=== PATIENT | female | born 1955 | race Caucasian/White ===

== ENCOUNTER 2019-09-10 02:22 | Outpatient (CLI) | payer OTHER, SELFPAY ==
--- NOTE | 2019-09-10 | DI.CTLCSR_ITS ---
EXAM: CT CHEST LUNG CANCER SCREEN CLINICAL HISTORY: CURRENT SMOKER, SCREENING, F17.200 TECHNIQUE: Low-dose screening protocol without contrast. COMPARISON: No exams were available for comparison FINDINGS: The heart size is normal. The aorta shows mild calcification and is normal in diameter. There are no visible coronary artery calcifications. No pleural or pericardial effusions or adenopathy is seen. Th ere are several scattered peripheral nodules measuring 2-3 millimeters in size. No infiltrates are se en. There is mild underlying centrilobular emphysema and biapical scarring. There are mild degenerati ve changes in the lumbar spine. The visualized portions of the upper abdomen are unremarkable. IMPRESSION: Lung RADS Cat 2 - Benign Appearance / Behavior: Nodules with a very low likelihood of becoming a clin ically active caner due to size or lack of growth. Annual low-dose screening CT is recommended.
== END 2019-09-10 02:42 ==
PROVIDERS: PCP Family Medicine; Visit Provider Family Medicine
DX: Z12.2 Encounter for screening for malignant neoplasm of respiratory organs (principal); F17.210 Nicotine dependence, cigarettes, uncomplicated; J43.9 Emphysema, unspecified; R91.8 Other nonspecific abnormal finding of lung field
CPT/HCPCS: G0297

== ENCOUNTER → 2022-05-09 02:50 | Outpatient (CLI) | payer MEDICARE, SELFPAY ==
--- NOTE | 2022-05-09 10:45 | ST.MBS_ITS ---
Date of Service Date of service: 05/09/22 Time of Service: 10:45 Modified Barium Swallow Study Findings: Video fluoroscopic Swallowing Evaluation (VFSE) / Modified Barium Swallow Study (MBSS) Speech Language Pathology Report Patient referred for VFSE/MBSS from Dr. BOWERS ([facility] [place] [place] given hx chemoRT for laryngeal cancer, worsening dysphagia. Eval for pharyngeal dysfunction, sten osis. Please coordinate with MONOTYPE OPERATOR. 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 Current smoker with 20 pack year hx. Most recent LDCT on 01/13/22 noted new cavitary lesions in Right upper lobe (10mm) and the Left lower lobe (7mm). Patient had a PEG tube during cancer treatment. She is currently followed by Pema Gonzales through [facility] [place] for RMST and swallow strategy/risk management training. Medical HX: Laryngeal cancer, GERD, Pure hypercholersterolemia, Hx total r hip replacement (bilateral, done separately, S/P Right SILVERIO, S/P revision of total hip LEFT, Spinal stenosis - lumbar Subjective: Patient reports progressive dysphagia especially to solids but also to liquids. Complains primarily of pharyngeal stasis to solids>liquids but can feel it with liquids, too. Sometimes with sensation of aspiration. IMPRESSIONS: Swallow safety is impaired; swallow efficiency is impaired. Moderate chronic oropharyngeal and ?esophageal dysphagia. Characterized primarily by the physiologic deficits as outlined below, resulting in penetration, residue, stasis,; following, the swallow from residue. Clinical Indicator(s) of Prandial/Postprandial Aspiration include: n/a Cued cough/throat clears were not effective to clear scant laryngeal residue. Volitional cough not robust. Patient appears to be at low-moderate risk for potential aspiration PNA and/or pulmonary compromise and low moderate risk for malnutrition, low risk for dehydration, especially if dysphagia continues to progress, or pending pulmonary status. Diet modification is indicated; non-oral nutrition is indicated. Swallow prognosis is guarded given: chronic progressive dysphagia s/p XRT, reported difficulty adhering to RMST, additional medical prognosis factors Positive prognostic factors: Age, Family/caregiver support, Cognitive status, Negative prognostic factors: Severity, Time since onset, Relative dose of Chemotherapy and/or radiation treatment, Ineffectiveness of trialed compensatory strategies, and pending patient/caregiver training in risk management as outlined, including use of trialed compensatory strategies. Patient appears to be a good candidate for behavioral swallow rehabilitation. RECOMMENDATIONS: Diet Texture Recommendation:? IDDSI LEVEL SOLIDS 5-Minced & Moist Solids LIQUIDS 0-Thin Liquids Please see further details at?www.iddsi.org http://www.iddsi.org/ MEDICATIONS Crushed, as able with 0-Thin Liquids or (slick, applesauce) Do not alter medications (e.g., cut)? without advice from your MD or pharmacist. Risk Management Strategies:? Behavioral reflux precautions, including upright position during + 90 mins after meals. Small bites, approx [id number] Very small sips, approx 5mL / teaspoon Alternate solids/liquids as able Multiple swallows (3+) per bolus to encourage clearance of pharyngeal stasis/residue Control risk factors for aspiration pneumonia via (a) thorough oral hygiene & (b ) maintaining physical mobility as tolerated PLAN: Therapy: Recommend subsequent outpatient session with MONOTYPE OPERATOR to review results of today's exam and develop treatment plan as appropriate. May consider the following: Oropharyngeal Exercises to target deficits noted in objective section above Further Compensatory Strategy Training Further Training/Education in Risk Management Training in RMST Program Further Counseling re: Options for maintaining quality of life in context of dysphagia presentation Goals: Defer to treating clinician Follow-up exam: Defer to treating clinician ----- OBJECTIVE Videofluoroscopic Swallow Evaluation (VFSE/MBSS) was conducted in the lateral projection by Speech-Language Pathologist, in collaboration with Radiologist, to evaluate oropharyngeal swallow function. Anatomic view under fluoroscopy: WFL PO Barium Contrast Trials Oral barium water-soluble contrast was administered as follows: IDDSI Level 0 Varibar thin liquid (40% w/v) IDDSI Level 2 Varibar nectar thick/mildly thick liquid (40% w/v) IDDSI Level 4 Varibar pudding/pureed/extremely thick (40% w/v) MBSImP Component Scores: COMPONENT Scale SCORE 1 Lip closure (0-4) 0 Resulted in no labial escape 2 Hold Position (0-3) 1 Allowed bolus escape to lateral buccal cavity/floor of mouth - trace amounts 3 Bolus Preparation (0-4) NA no solid trials administered given level of stasi s with pudding 4 Bolus Transport (0-4) 1 Demonstrated delayed initiation of tongue motion - mild 5 Oral Residue (0-4) 2 Was a collection on oral structures - partially due to piecemeal deglutition of pudding, though some residue present with liquid as well 6 Swallow Initiation (0-4) 1 Occurred when the bolus head was in valleculae 7 Soft Palate Elevation (0-4) 0 Resulted in no bolus between soft palate and t he pharyngeal wall 8 Laryngeal Elevation (0-3) 1 Was decreased with partial superior movement of thyroid cartilage/partial approximation of arytenoids to epiglottic petiole 9 Anterior Hyoid Motion (0-2) 0 Demonstrated complete anterior movement 10 Epiglottic Movement (0-2) 1 Resulted in partial inversion - variable from n o inversion to partial 11 Laryngeal Closure (0-2) 1 Was incomplete with narrow a column of air/contra st in laryngeal vestibule 12 Pharyngeal Stripping Wave (0-2) 1 Was present, but diminished 13 Pharyngeal Contraction (0-3) NA no a/p view 14 PES Opening (0-3) 1 Demonstrated partial distension/partial duration, with pa rtial obstruction of flow 15 Tongue Base Retraction (0-4) 3 Allowed a wide column of contrast or air between the retracted tongue base and the posterior pharyngeal wall 16 Pharyngeal Residue (0-4) 3 Was the majority of contrast within or on pharyngeal structures 17 Esophageal Clearance (0-4) NA Notes on Penetration/Aspiration: Penetration largely occurring AFTER the swallow of pharyngeal stasis with liquids only (including thickened). 1x penetration event during the swallow (larger volume/thin liquid wash to clear pudding vallecular stasis) Though penetration occurred consistently with liquid trials, and residue remained in the larynx post-swallow, no sub-glottic residue was visualized, no aspiration observed Pharyngeal Residue: For thick>thin liquids, overall mild For pudding, severe, with minority of bolus clearing per swallow including subsequent secondary swallows. Results: COMPONENT Scale SCORE 1 Oral Score (0-18) 5 2 Pharyngeal Score (0-29) 11 3 Esophageal Score (0-4) 0 Dysphagia Outcome and Severity Scale: COMPONENT Scale SCORE 1 LEVEL (1-7) 3 Full PO: Modified Diet and/or [place] - Moderate dysphagi a; Total assist / Supervision or strategies 2 or more diet consistencies restricted Penetration-Aspiration Scale: COMPONENT Scale SCORE 1 Thin liquid (1-8) 5 Contrast entered the airway, contacted the vocal folds, and was not ejected from the airway. 2 [place] thick (1-8) 5 Contrast entered the airway, contacted the vocal folds, and was not ejected from the airway. 3 Honey thick (1-8) NA dnt 4 Pudding thickA (1-8) 1 Contrast did not enter the airway 5 Cookie (1-8) NA dnt Functional Oral Intake Scale: COMPONENT Scale SCORE 1 Pre-Study (1-7) NA 2 Post-Study (1-7) 5 Total oral intake of multiple consistencies requiring special preparation DIGEST: COMPONENT Scale SCORE 1 Thin Max PAS (1-8) 5 Contrast entered the airway, contacted the vocal folds, and was not ejected from the airway. 2 [place] Max PAS (1-8) 5 Contrast entered the airway, contacted the vocal fold s, and was not ejected from the airway. 3 Honey Max PAS (1-8) NA 4 Liquid Max PAS (1-8) 5 Maximum PAS Score over all liquid trials 5 Liquid Max Residue (0-3) 1 10 - 49% 6 Pudding Max PAS (1-8) 1 Contrast did not enter the airway 7 Pudding Max Residue (0-3) 2 50 - 90% 8 Cracker Max PAS (1-8) NA 9 Cracker Max Residue (0-3) NA 10 Frequency if PAS >= 3 (0-3) NA 11 Amount if PAS >= 5 (0-1) 0 Not gross Results: COMPONENT Scale SCORE 1 SAFETY GRADE (0-4) 1 Safety grade for swallowing based on patterns of aspiration or laryngeal penetration 2 EFFICIENCY GRADE (0-4) 3 Efficiency grade of swallowing based on patterns of pharyngeal residue 3 DIGEST (0-4) 2 Severity grade of pharyngeal dysphagia: 0 - Normal, 1 - Mild, 2 - Moderate, 3 - Severe, 4 - Life threatening 4 Max Exam PAS (1-8) 5 Maximum PAS Score over all bolus trials 5 Max Exam Residue (0-3) 2 Maximum Exam Residue over all bolus trials Trialed Compensatory Strategies & Outcome: Maneuvers Successful (+) Unsuccessful (-) Postures Successful (+) Unsuccessful (-) 3 second Preparatory Set? ? +/- Chin Tuck Posture? ? +/- Cough? ? Posterior Head tilt? Reflexive? Cued? ? - ? ? Throat Clear? ? Head Tilt to? Reflexive? Left? Cued? ? - ? Right? ? Saliva swallow? C ? + to decrease, incrementally, pharyngeal residue Head Turn/Rotate to? ? Supraglottic Swallow? Left? ? - Super-supraglottic Swallow? Right? ? - Bolus Modifications Successful (+) Unsuccessful (-) Delivery/Alternating Consistencies ? Follow with Liquid Wash - ? Follow with Solid Bolus? Delivery/Via Straw? ? Reduced Volume? ? + Reduced Rate of Intake? ? Increased Viscosity? ? - Other:?? ? Thank you for allowing us to take part in this patient's care. Please feel free to contact the [facility] Speech Language Pathology Department with any questions/concerns. Coding CPT Codes MOTION FLUOROSCOPY/SWALLOW - [id number] ([id number])
[2022-05-09] MEDS: Barium Sulfate 81% w/w for Oral Suspension 148 GM BTL 45 GM PO (11:11)
[2022-05-09] MEDS: Barium Sulfate 40% W/V 1500 CPS 250 ML BTL PO (11:12)
[2022-05-09] MEDS: Barium Sulfate Oral Paste 40% W/V 230 ML TUBE 7 ML PO (11:13)
--- NOTE | 2022-05-09 11:13 | DI.RAD_ITS ---
Exam(s) RF MODIFIED SPEECH BA SWALLOW TECHNIQUE: Modified barium swallow was performed in conjunction with speech pathology. CONTRAST MATERIAL: Oral barium contrast was administered. COMPARISON: No exams were available for comparison FINDINGS: Note that this is not a dedicated esophagram, distal esophagus not evaluated. There is no evidence of aspiration of thick or thin liquids or barium pudding. There was penetration with thin liquid barium during the examination. There is retention of barium pudding throughout the examination within the vallecula. Speech pathology report to follow. IMPRESSION: No evidence of aspiration. There was penetration of thin liquid during the examination. Please refe r to the speech pathology report for complete details. RADIATION DOSE DELIVERED: jhon Torre=8.18 mGy
== END ==
PROVIDERS: PCP Family Medicine; Visit Provider Internal Medicine Hematology & Oncology
DX: Z20.822 Contact with and (suspected) exposure to COVID-19 (principal); R13.10 Dysphagia, unspecified; C32.9 Malignant neoplasm of larynx, unspecified
CPT/HCPCS: 92611; 74221

== ENCOUNTER → 2023-11-12 03:32 | Outpatient (CLI) | payer MEDICARE, SELFPAY ==
--- NOTE | 2023-11-12 09:40 | DI.RAD_ITS ---
Exam(s) RF MODIFIED SPEECH BA SWALLOW TECHNIQUE: Modified barium swallow was performed in conjunction with speech pathology. CONTRAST MATERIAL: Oral barium contrast was administered. COMPARISON: No exams were available for comparison FINDINGS: Note that this is not a dedicated esophagram, distal esophagus not evaluated. Aspiration occurred with thin liquids. There was no aspiration or penetration with thick liquids or barium pudding. Speech pathology report to follow. . . . IMPRESSION: Aspiration occurred with thin liquids. RADIATION DOSE DELIVERED: jhon Torre=4.72 mGy
[2023-11-12] MEDS: Barium Sulfate Oral Paste 40% W/V 230 ML TUBE PO (09:44)
[2023-11-12] MEDS: Barium Sulfate 81% w/w for Oral Suspension 148 GM BTL PO (09:44)
[2023-11-12] MEDS: Barium Sulfate 40% W/V 240 ML BTL PO (09:45)
--- NOTE | 2023-11-12 12:22 | ST.MBS ---
Date of Service Date of service: 11/12/23 Time of Service: 09:00 Modified Barium Swallow Study Findings: Video fluoroscopic Swallowing Evaluation (VFSE) / Modified Barium Swallow Study (MBSS) Speech Language Pathology Report Patient referred for VFSE/MBSS from Dr. Yuliet Hooks given worsening dysphagia. HPI & Patient report of function: Patient is a 68 year old female with report of worsening swallowing difficulty. She has a hx of cT2N2 laryngeal CA s/p chemoradiation treatment in 2016. She had a PEG tube during treatment, but had it removed shortly after completion of treatment. Her last MBSS was in 2021, revealing moderate chronic oral pharyngeal and ? esophageal dysphagia. See report dated 05/09/22 for further information. She presents today stating I feel like things are a lot worse, noting her has had to give her the heimlich many times. She denies weight loss, stating she eats ice cream daily. No history of recent pneumonia. She is currently working closely with her dentist for dental extractions, with hx abscess and infections. Previous Imaging: MBSS 05/09/22 IMPRESSIONS: Viviane presents with moderate-severe chronic oral pharyngeal sensori-motor dysphagia, appearing at least mildly worse compared to last assessment. Swallow safety and efficiency are both impaired. Primary impairments include: decreased BOT retraction, decreased pharyngeal wall movement, delayed swallow initiation, suspected epiglottic rigidity, and decreased UES opening. This results in consistent aspiration with thin liquids due to the barium liquid reaching the pyriforms prior to swallow initiation with spillover into laryngeal vestibule during the swallow. With trace quantity aspiration there is no cough reflex (silent aspiration), though cough reflex is appreciated with greater quantity (though delayed/ineffective). With mildly thick liquids, there is penetration that remains above the vocal cords, however there is notably more residue in the pyriforms that is difficult to clear. With solids/pudding, there is significant vallecular and pyriform retention requiring sips of liquid and anterior movement back to oral cavity to re-swallow. Majority of residue is cleared with consecutive sips of thin liquid. Overall, Viviane is considered very high risk for aspiration-related illness, especially in current setting of dental infections (active with dentist for extractions). In addition to swallow safety, swallow efficiency is significantly impaired, though fortunately, she denies issues with weight maintenance- supplementing with drinks and ice cream. Recommend consideration/trial of upper esophageal dilation, in addition to ongoing SADDLE MECHANIC services targeting pharyngeal/BOT strength and ROM. Viviane is in agreement with both of these recommendations. Swallow prognosis is guarded given diagnosis/PMH. Positive prognostic factors include patient insight/motivation. She is a fair to good candidate for behavioral swallow rehabilitation. Specialist referrals:? GI vs surgery for consideration of upper esophageal dilation at level of UES RECOMMENDATIONS: Diet Texture Recommendation:? SOLIDS 5-Minced & Moist Solids & 4-Puree solids. All minced/moist solids must be chewed to applesauce consistency before swallowing. Recommend favoring runny puree/applesauce consistency as able for majority of intake LIQUIDS 0-Thin Liquids VERY SMALL, SINGLE SIPS Please see further details at?www.iddsi.orghttp://www.iddsi.org/ MEDICATIONS Cut/crushed in applesauce followed by sips liquid Diet texture modification is per patient's preference; please adjust diet textures at patient's discretion & collaboration with care team. Do not alter medications (e.g., cut)? without advice from your MD or pharmacist. Risk Management Strategies:? Small bites, approx [id number] Very small sips, approx 5mL / teaspoon Alternate solids/liquids as able Multiple swallows per bolus to encourage clearance of pharyngeal stasis/residue Control risk factors for aspiration pneumonia via (a) thorough oral hygiene & (b) maintaining physical mobility as tolerated PLAN: Therapy: Recommend subsequent outpatient session with SADDLE MECHANIC to review results of today's exam and develop treatment plan as appropriate. May consider the following: Oropharyngeal Exercises to target deficits noted in objective section above Further Compensatory Strategy Training Further Training/Education in Risk Management Further Counseling re: Options for maintaining quality of life in context of dysphagia presentation Goals: Follow-up exam: N/A OBJECTIVE Videofluoroscopic Swallow Evaluation (VFSE/MBSS) was conducted in the lateral projection by Speech-Language Pathologist, in collaboration with Radiologist, to evaluate oropharyngeal swallow function. Anatomic view under fluoroscopy: WFL PO Barium Contrast Trials Oral barium water-soluble contrast was administered as follows: IDDSI Level 0 Varibar thin liquid (40% w/v) IDDSI Level 2 Varibar nectar thick/mildly thick liquid (40% w/v) IDDSI Level 4 Varibar pudding/pureed/extremely thick (40% w/v) *Did not test regular solids due to residue with pudding MBSImP Component Scores: COMPONENT Scale SCORE 1 Lip closure (0-4) 0 Resulted in no labial escape 2 Hold Position (0-3) 0 Maintained a cohesive bolus between tongue to palatal seal 3 Bolus Preparation (0-4) N/A Did not present beyond pudding 4 Bolus Transport (0-4) 1 Demonstrated delayed initiation of tongue motion - mild 5 Oral Residue (0-4) 0 Was not observed. There was complete oral clearance 6 Swallow Initiation (0-4) 3 Occurred when the bolus head was in the pyriform sinuses 7 Soft Palate Elevation (0-4) 0 Resulted in no bolus between soft palate and the pharyngeal wall 8 Laryngeal Elevation (0-3) 2 Was incomplete, with minimal superior movement of thyroid cartilage with minimal approximation of arytenoids to epiglottic petiole 9 Anterior Hyoid Motion (0-2) 1 Demonstrated partial anterior movement 10 Epiglottic Movement (0-2) 1 Resulted in partial inversion 11 Laryngeal Closure (0-2) 1 Was incomplete with narrow a column of air/contrast in laryngeal vestibule 12 Pharyngeal Stripping Wave (0-2) 1 Was present, but diminished 13 Pharyngeal Contraction (0-3) NA 14 PES Opening (0-3) 2 Demonstrated minimal distension/minimal duration, with marked obstruction of flow 15 Tongue Base Retraction (0-4) 3 Allowed a wide column of contrast or air between the retracted tongue base and the posterior pharyngeal wall 16 Pharyngeal Residue (0-4) 3 Was the majority of contrast within or on pharyngeal structures 17 Esophageal Clearance (0-4) NA Results: COMPONENT Scale SCORE 1 Oral Score (0-18) 3 2 Pharyngeal Score (0-29) 14 3 Esophageal Score (0-4) 0 Functional Oral Intake Scale: COMPONENT Scale SCORE 1 Pre-Study (1-7) 5 Total oral intake of multiple consistencies requiring special preparation 2 Post-Study (1-7) 5 Total oral intake of multiple consistencies requiring special preparation Penetration-Aspiration Scale: COMPONENT Scale SCORE 1 Thin liquid (1-8) 8 Contrast entered the airway, passed below the vocal folds, and no effort was made to eject. 2 [place] thick (1-8) 2 Contrast entered the airway, remained above the vocal folds, and was ejected from the airway. 3 Honey thick (1-8) 1 Contrast did not enter the airway 4 Pudding thick (1-8) 1 Contrast did not enter the airway 5 Cookie (1-8) NA Trialed Compensatory Strategies & Outcome: Maneuvers Successful (+) Unsuccessful (-) Postures Successful (+) Unsuccessful (-) 3 second Preparatory Set? -- ? Chin Tuck Posture? -- Cough? ? Posterior Head tilt? Reflexive? Cued? -- ? ? ? Throat Clear? ? Head Tilt to? Reflexive? Left? Cued? Right? ? Saliva swallow? ? Head Turn/Rotate to? ? Supraglottic Swallow? Left? ? Super-supraglottic Swallow? Right? ? Bolus Modifications Successful (+) Unsuccessful (-) Delivery/Alternating Consistencies ? Follow with Liquid Wash + ? Follow with Solid Bolus? Delivery/Via Straw? ? Reduced Volume? + ? Reduced Rate of Intake? ? Increased Viscosity? ? Other:?? ? Thank you for allowing us to take part in this patient's care. Please feel free to contact the [facility] Speech Language Pathology Department with any questions/concerns.
== END ==
PROVIDERS: PCP Family Medicine; Visit Provider Speech-Language Pathologist
DX: R13.12 Dysphagia, oropharyngeal phase (principal); Z85.21 Personal history of malignant neoplasm of larynx
CPT/HCPCS: 92526; 74221

== ENCOUNTER 2024-07-21 02:38 | Outpatient (CLI) | payer MEDICARE, SELFPAY ==
[2024-07-21 14:01] LABS: Abs Immature Grans 0.03 10^3/uL (0.0-0.06); Absolute Basophil Count 0.01 10^3/uL (0.0-0.2); Absolute Eosinophil Count 0.28 10^3/uL (0.0-0.7); Absolute Monocyte Count 0.52 10^3/uL (0.1-0.8); Absolute Neutrophil Count 3.45 10^3/uL (1.2-6.7); Basophils % 0.2 %; Eosinophils % 5.1 %; HGB 11.1 g/dL (11.2-15.7); Immature Grans % 0.5 %; Lymphocytes % 21.9 %; MCH 28.8 pg (27.0-33.0); MCHC 31.7 % (32.0-36.0); MCV 91 fL (80-95); MPV 8.2 fL (8.0-11.0); Monocytes % 9.5 %; Neutrophils % 62.8 %; Platelet Count 273 10^3/uL (130-400); RBC 3.85 10^6/uL (3.93-5.22); RDW 13.9 % (11.7-14.6); RDW-SD 46.2 fL; WBC 5.49 10^3/uL (4.4-10.8)
[2024-07-21 14:18] LABS: ALT 24 U/L (14-59); AST 27 U/L (15-37); Albumin 3.2 g/dL (3.4-5.0); Alkaline Phosphatase 194 U/L (46-116); Anion Gap 7.1 mmol/L (3-11); BUN 15 mg/dL (7-18); Bilirubin, Total 0.21 mg/dL (0.2-1.0); CO2 29.9 mmol/L (21.0-32.0); CREATININE 0.8 mg/dL (0.55-1.02); Calcium 9.2 mg/dL (8.5-10.1); Chloride 96 mmol/L (98-107); Estimated GFR 78.72 (mL/min/1.73m2); Glucose 90 mg/dL (74-106); Magnesium 1.9 mg/dL (1.8-2.4); Potassium 4.3 mmol/L (3.5-5.1); Sodium 133 mmol/L (136-145); Total Protein 7.7 g/dL (6.4-8.2)
== END 2024-07-21 02:39 | disposition home or self-care (01) ==
LOC: LBO 02:38
PROVIDERS: PCP Family Medicine; Visit Provider Internal Medicine Medical Oncology
DX: C34.11 Malignant neoplasm of upper lobe, right bronchus or lung (principal)
CPT/HCPCS: 36415; 80053; 83735; 85025